=== PATIENT | female | born 1960 | race Caucasian/White ===

== ENCOUNTER → 2018-10-09 | Outpatient (CLI) | payer BC ==
--- NOTE | 2018-10-09 15:41 | XR ---
EXAMINATION TYPE: XR finger RT DATE OF EXAM: 10/09/2018 COMPARISON: NONE HISTORY: Pain TECHNIQUE: Three views are submitted. FINDINGS: The osseous structures are intact. There is narrowing the first carpal metacarpal joint. Soft tissue edema seen. No destructive changes.
== END | disposition home or self-care (01) ==
LOC: RADXRYALE 15:11
PROVIDERS: ATTEND Internal Medicine
DX: L03.011 Cellulitis of right finger (principal)